=== PATIENT | male | born 1970 | race Caucasian/White ===

== ENCOUNTER 2019-06-17 18:45 | Emergency (ER) | payer OTHER ==
[~2019-06-17] VITALS: Ht 188 cm; Wt 113.4 kg
--- NOTE | 2019-06-17 19:19 | ED Upper Extremity ---
General Chief Complaint: Laceration Stated Complaint: LT HAND THUMB LAC Source: patient Exam Limitations: no limitations History of Present Illness Date Seen by Provider: Jun 17, 2019 Time Seen by Provider: 19:05 Initial Comments The patient is a pleasant 48-year-old male presents for evaluation of a laceration to the left thumb. He states that he was sharpening a lawnmower blade and was putting it back on the lawnmower when he lost control and it cut his hand. He has full range of motion of the left thumb. He has a few other very minor abrasions/lacerations to some of the other fingers but nothing repairable. He states that he is up-to-date with his tetanus immunization status. Onset: just prior to arrival Severity: moderate Pain/Injury Location: left thumb Method of Injury: incised Modifying Factors: Improves With Movement (makes it hurt slightly more) Allergies and Home Medications Allergies Coded Allergies: No Known Drug Allergies (Unverified , 06/17/19) Patient Home Medication List Home Medication List Reviewed: Yes Review of Systems Constitutional: no symptoms reported EENTM: no symptoms reported Respiratory: no symptoms reported Cardiovascular: no symptoms reported Gastrointestinal: no symptoms reported Genitourinary: no symptoms reported Musculoskeletal: no symptoms reported Skin: no symptoms reported Psychiatric/Neurological: No Symptoms Reported All Other Systems Reviewed Negative Unless Noted: Yes Past Dghhhvt-[id number]-Qiivdj Hx Past Med/Social Hx: Reviewed Nursing Past Med/Soc Hx Patient Social History Recent Foreign Travel: No Contact w/Someone Who Travel: No Physical Exam Vital Signs Vital Signs - First Documented 06/17/19 19:05 Temp 99.1 Pulse 87 Resp 18 B/P (MAP) 105/71 (82) Pulse Ox 96 O2 Delivery Room Air Capillary Refill : Height, Weight, BMI Height: '" Weight: lbs. oz. kg; BMI Method: General Appearance: WD/WN, no apparent distress Cardiovascular: regular rate, rhythm, no edema Respiratory: normal breath sounds, no respiratory distress Shoulder: normal inspection Elbow/Forearm: normal inspection Wrist: Yes normal inspection, Yes non-tender, Yes no evidence of injury, Yes n ormal ROM Hand: Left, laceration (left thumb 2.5cm laceration on lateral/radial side, full ROM thumb, no arterial bleeding noted, venous oozing present, small flap laceration to 2nd finger on dorsal side - superficial) Neurologic/Psychiatric: no motor/sensory deficits, alert, normal mood/affect, oriented x 3 Skin: normal color, warm/dry Procedures/Interventions Wound Location: Upper Extremities Other Wound Location left thumb (sutures) left 2nd finger (dermabond) Wound Length (cm): 3 Wound's Depth, Shape: linear Wound Explored: clean Irrigated w/ Saline (ccs): 250 Anesthesia: Lidocaine w/ Epi Volume Anesthetic (ccs): 3 Suture: Ethlion Suture Size: 5-0 Number of Sutures: 7 Progress Patient tolerated the procedure well. Progress/Results/Core Measures Results/Orders My Orders Orders - LYRIC CHAVEZ DO Lidocaine/Epi 2% 1:100,000 (Xylocaine/Ep (06/17/19 19:22) Lidocaine/Epi 2% 1:100,000 (Xylocaine/Ep (06/17/19 19:30) Vital Signs/I&O 06/17/19 19:05 Temp 99.1 Pulse 87 Resp 18 B/P (MAP) 105/71 (82) Pulse Ox 96 O2 Delivery Room Air Progress Progress Note : Progress Note @195 - Patient tolerated the repair well. Dressing applied by RN. Advised the patient to have the sutures removed in 7-10 days from today and to follow-up with his doctor in 2-3 days for wound check. The patient expressed verbal understanding and with a stable fissures sign. Departure Impression Primary Impression: Thumb laceration Disposition: 01 HOME, SELF-CARE Condition: Stable Departure-Patient Inst. Decision time for Depature: 19:55 Referrals: NO,LOCAL PHYSICIAN (PCP) Primary Care Physician Patient Instructions: Laceration Repair With Stitches (DC) Add. Discharge Instructions: The stitches should be removed in 7-10 days. Follow-up with your doctor in 2-3 days for wound check. Return to the ER immediately for new or worsening symptoms . LYRIC CHAVEZ DO Jun 17, 2019 19:19
[2019-06-17] MEDS ORDERED: LIDOCAINE/EPI 2% 1:100,00 (XYLOCAINE) 20 ML VIAL ONE (19:22)
[2019-06-17] MEDS ORDERED: LIDOCAINE/EPI 1%-1:100,000 (XYLOCAINE) 20ML INJ ONE (19:30)
[2019-06-17] MEDS: LIDOCAINE/EPI 2% 1:100,00 (XYLOCAINE) 20 ML VIAL INJ ONE (19:40)
[2019-06-17 20:00] VITALS: BP 105/71
--- NOTE | 2019-06-17 20:00 | NUR ---
Patient received 8 stitches
== END 2019-06-17 20:00 | disposition home or self-care (01) ==
LOC: ER FS 18:46
DX: S61.012A Laceration without foreign body of left thumb without damage to nail, initial encounter (principal); S61.211A Laceration without foreign body of left index finger without damage to nail, initial encounter; W26.8XXA Contact with other sharp object(s), not elsewhere classified, initial encounter
CPT/HCPCS: 12002

== ENCOUNTER 2021-02-26 05:36 | Outpatient (CLI) | payer OTHER ==
[~2021-02-26] VITALS: Ht 188 cm; Wt 113.6 kg
== END 2021-02-26 12:31 | disposition home or self-care (01) ==
LOC: PREOP 05:36
PROVIDERS: ATTEND Surgery
DX: Z01.818 Encounter for other preprocedural examination (principal)

== ENCOUNTER 2021-03-05 07:27 | Day surgery (SDC) | payer OTHER ==
[~2021-03-05] VITALS: Ht 188 cm; Wt 113.6 kg
[2021-03-05] MEDS ORDERED: LACTATED RINGERS 1,000 ML IV ONE (07:29)
[2021-03-05] MEDS ORDERED: LACTATED RINGERS 1,000 ML IV STA (07:35)
[2021-03-05 07:50] VITALS: BP 124/86
[2021-03-05] MEDS ORDERED: CETI10TA23 PO (07:52)
[2021-03-05] MEDS ORDERED: CELE100C84 PO (07:52)
[2021-03-05] MEDS ORDERED: LISI20TA26 PO (07:52)
[2021-03-05] MEDS ORDERED: ATOR20TA66 PO (07:52)
[2021-03-05] MEDS ORDERED: MIDAZOLAM 2 MG/2 ML (VERSED) VIAL ONE (08:14)
[2021-03-05] MEDS ORDERED: ONDANSETRON 4 MG/2 ML (SDV) Z0FRAN ONE (08:14)
[2021-03-05] MEDS ORDERED: PROPOFOL INJECTION 0 ML IV ONE (08:14)
[2021-03-05] MEDS ORDERED: PROPOFOL INJECTION 50 ML IV ONE (09:00)
[2021-03-05 09:24] VITALS: BP 101/68
[2021-03-05 09:29] VITALS: BP 96/54
[2021-03-05 09:34] VITALS: BP 108/66
[2021-03-05 09:35] VITALS: BP 103/66
--- NOTE | 2021-03-05 09:55 | Progress Note-Post Operative ---
Post-Operative Progess Note Surgeon (s)/Microbial Specialist (s) Surgeon PEG NOVAK DO Microbial Specialist: none Pre-Operative Diagnosis screening colon Post-Operative Diagnosis int hemorrhoids Procedure & Operative Findings Date of Procedure 03/05/21 Procedure Performed/Findings PROCEDURE NOTE: After informed consent was obtained, the patient was brought to the endoscopy suite and placed in the bed in the left lateral decubitus position. He was administered IV sedation by the LOGISTICS CLERK, who then monitored him vitals the entire time, heart rate, blood pressure and pulse ox and the scope was inserted, started the colonoscopy. Pushed all the way into about 140 cm to get all the way to cecum, took a picture of the appendiceal orifice, noted the ileocecal valve and then slowly withdrew the scope, insufflating to look circumferentially at the spencer looking at the cecum, up the ascending colon to the hepatic flexure, then down the transverse colon, to the splenic flexure, into the descending colon, down into the sigmoid and finally into the rectum, retroflexed in the rectal vault, saw some minimal internal hemorrhoids and took a picture of this. The patient tolerated the procedure and he was recovered in the endoscopy suite. Anesthesia Type IV sedation by LOGISTICS CLERK Estimated Blood Loss Estimated blood loss (mL): none Specimens/Packing Specimens Removed none PEG NOVAK DO March 05, 2021 09:55
--- NOTE | 2021-03-05 09:56 | Endoscopy Discharge Instruct ---
Endo Procedure/Findings Findings 1.: Internal Hemorrhoids Discharge Instructions - Activity: You might feel a little sleepy until tomorrow. This is due to the me dicine you received to relax you. Until tomorrow, you should: NOT drive a car, operate machinery or power tools. NOT drink any alcoholic beverages. NOT make any important decisions or sign importortant papers. Do not return to work until tomorrow, unless otherwise instructed. Resume previous activities tomorrow. Diet: Start by taking liquids. If you tolerate liquids, advance to solid food. 1.: Colonscopy in 10 years Notify Physician - If you experience excessive bleeding, unusual abdominal pain, fever, or chest pain, contact your doctor immediately. PEG NOVAK DO March 05, 2021 09:56
[2021-03-05 10:05] VITALS: BP 132/91
--- NOTE | 2021-03-05 10:56 | Anesthesia-General Post-Op ---
MAC Patient Condition Mental Status/LOC: Same as Preop Cardiovascular: Satisfactory Nausea/Vomiting: Absent Respiratory: Satisfactory Pain: Controlled Complications: Absent Post Op Complications Complications None Follow Up Care/Instructions Patient Instructions None needed. Anesthesiology Discharge Order Discharge Order Patient is doing well, no complaints, stable vital signs, no apparent adverse anesthesia problems. No complications reported per nursing. ETTA BRAVO CRNA March 05, 2021 10:56
== END 2021-03-05 10:12 | disposition home or self-care (01) ==
LOC: ENDO 07:27
PROVIDERS: ATTEND Surgery
DX: Z12.11 Encounter for screening for malignant neoplasm of colon (principal); K64.8 Other hemorrhoids; I10 Essential (primary) hypertension; E78.5 Hyperlipidemia, unspecified; Z79.899 Other long term (current) drug therapy